=== PATIENT | male | born 1940 | race Caucasian/White ===

== ENCOUNTER 2024-06-04 21:14 | Emergency (ER) | payer MEDICARE ==
[~2024-06-04] VITALS: Ht 182.9 cm; Wt 93.7 kg
[2024-06-04 21:28] LABS: BASOPHILS 0.2 % (0-2); EOSINOPHILS 5.7 % (0-6); HEMATOCRIT 42.7 % (35.0-50.0); HEMOGLOBIN 14.5 g/dL (12.0-18.0); MCH 33.8 (27-36); MCHC 33.9 g/dl (30-36); MCV 99.7 fl (81-99); MONOCYTES 8.3 % (0-12); NEUTROPHILS 37.8 % (39-80); PLATELET COUNT 153 K/uL (140-440); RBC 4.28 M/ul (4.3-5.7); RDW 12.9 (10.5-15.0)
[2024-06-04 21:44] LABS: ALBUMIN 3.6 g/dL (3.4-5.0); ALBUMIN/GLOBULIN RATIO 1.13 (1.1-2.4); ANION GAP 13.7 (7-21); BILIRUBIN, TOTAL 0.5 ng/dL (0.2-1.0); BUN/CREATININE RATIO 15.17 (6.0-28.6); CALCIUM 8.6 mg/dL (8.5-10.1); CREATININE, SERUM 1.12 mg/dL (0.70-1.30); POTASSIUM 3.7 mmol/L (3.5-5.1); PROTEIN, TOTAL 6.8 g/dL (6.4-8.2)
[2024-06-04] MEDS ORDERED: FAMOTIDINE 20 MG/ 2 ML VIAL IV ONE (22:00)
[2024-06-04] MEDS ORDERED: ondansetron HCL 4 MG/2 ML VIAL IV ONE ×2 (22:00→23:15)
[2024-06-04 22:03] LABS: ABO O; ANTIBODY SCREEN NEGATIVE; RH POSITIVE
[2024-06-04] MEDS ORDERED: DIPHTH,PERTUSS(ACELL),TET VAC 0.5 ML SYRINGE IM ONE (22:30)
[2024-06-04] MEDS ORDERED: TRANEXAMIC ACID IN NACL,ISO-OS 1,000 MG/100 ML PIGGYBACK IV ONE (22:30)
[2024-06-04] MEDS ORDERED: levETIRAcetam 500 MG/5 ML VIAL IV ONE (22:30)
[2024-06-04] MEDS ORDERED: LACTATED RINGER'S 1,000 ML IV SCH (22:30)
[2024-06-04] MEDS ORDERED: LIDOCAINE 2% VISCOUS 6 ML SYR MM ONE (23:15)
[2024-06-04] MEDS ORDERED: MORPHINE SULFATE 4 MG/ML VIAL IV ONE (23:15)
[2024-06-04 23:20] VITALS: BP 158/95
[2024-06-04 23:25] LABS: BILIRUBIN, URINE NEGATIVE (negative); BLOOD/HGB, URINE TRACE-I (Negative); KETONE, URINE NEGATIVE (Negative); LEUK ESTERASE, URINE TRACE (negative); NITRITE, URINE POSITIVE (negative)
[2024-06-04 23:34] LABS: BACTERIA, URINE 3+ /hpf (negative); CASTS, URINE NONE SEEN \\lpf; COLLECTION TYPE, URINE CLEAN CATCH; CRYSTALS, URINE NONE SEEN (0-1+); EPITHELIAL CELLS, URINE NONE SEEN /lpf (0-1+); REFLEX CULTURE, URINE Yes (No)
[2024-06-04 23:39] LABS: AMPHETAMINES, URINE NEGATIVE (NEGATIVE); BARBITURATES, URINE NEGATIVE (NEGATIVE); BENZODIAZEPINE, URINE NEGATIVE (NEGATIVE); BUPRENORPHINE, URINE NEGATIVE (NEGATIVE); CANNABINOID, URINE NEGATIVE (NEGATIVE); COCAINE, URINE NEGATIVE (NEGATIVE); ECSTASY, URINE NEGATIVE (NEGATIVE); FENTANYL, URINE NEGATIVE (NEGATIVE); METHADONE, URINE NEGATIVE (NEGATIVE); OPIATES, URINE NEGATIVE (NEGATIVE); OXYCODONE, URINE NEGATIVE (NEGATIVE); PHENCYCLIDINE, URINE NEGATIVE (NEGATIVE)
== END 2024-06-04 23:20 | disposition short-term general hospital (02) ==
LOC: EDBD 21:14 → ED 21:14
PROVIDERS: Internal Medicine
DX: S02.11HB Other fracture of occiput, left side, initial encounter for open fracture (principal); S06.5X1A Traumatic subdural hemorrhage with loss of consciousness of 30 minutes or less, initial encounter; S06.6X1A Traumatic subarachnoid hemorrhage with loss of consciousness of 30 minutes or less, initial encounter; W18.30XA Fall on same level, unspecified, initial encounter; F10.129 Alcohol abuse with intoxication, unspecified; Y90.6 Blood alcohol level of 120-199 mg/100 ml
CPT/HCPCS: 36415; 70450; 70486; 71045; 72125; 80053; 80307; 81001; 85025; 86850; 86900; 86901; 87077; 87088; 87186; 90471; 90715; 96374; 96375; 96376; 99285-25; G0480; J1953; J2270; J2405; J7121; U0002